=== PATIENT | male | born 1985 | race Caucasian/White ===

== ENCOUNTER 2025-05-23 04:23 | Emergency (ER) | payer SELFPAY ==
[2025-05-23 04:28] VITALS: BP 127/80
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
== END 2025-05-23 05:15 | disposition left against medical advice (07) ==
LOC: EMR 04:23
PROVIDERS: EMERGENCY PHYSICIAN Student in an Organized Health Care Education/Training Program
DX: R45.1 Restlessness and agitation (principal); F41.9 Anxiety disorder, unspecified; V49.9XXA Car occupant (driver) (passenger) injured in unspecified traffic accident, initial encounter; Y92.410 Unspecified street and highway as the place of occurrence of the external cause; Z53.29 Procedure and treatment not carried out because of patient's decision for other reasons
CPT/HCPCS: 99281

== ENCOUNTER 2025-05-23 12:11 | Emergency (ER) | payer SELFPAY ==
[2025-05-23 12:17] VITALS: BP 114/73
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
--- NOTE | 2025-05-23 18:16 | EDRN ---
pt now awake & alert, ambulating w/ a steady gait. pt talked w/ significant other Say who he states will not come to pick him up. pt wanted to leave the emergency department but did not know where he was going to go when he left. Angie, pharmacist in charge owner &
Dr Alas aware of situation. Angie contacted case management to try to arrange a safe dispo plan for the patient as patient needs to get back up to [place] by tmrw to make his methadone clinic appt
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
--- NOTE | 2025-05-23 18:23 | CM ---
I met with pt to help with transportation assistance. Pt states he currently lives in [place] ([address] [place], [place]) but does not think he can go back there, [place] address in [facility] is his brother in [place]. Pt states he needs to
get to [facility] to get his Methadone tomorrow morning but can get an emergency dose in [place]. He does not want to stay in [facility]. He is calling his sister and brother to see if he can arrange for someone to pick him up. His nurse
and Angie, charge nurse updated.
== END 2025-05-23 18:53 | disposition home or self-care (01) ==
LOC: EMR 12:11
PROVIDERS: EMERGENCY PHYSICIAN Emergency Medicine
DX: F11.20 Opioid dependence, uncomplicated (principal); F13.20 Sedative, hypnotic or anxiolytic dependence, uncomplicated; R40.0 Somnolence; R12 Heartburn; F17.200 Nicotine dependence, unspecified, uncomplicated; Z91.148 Patient's other noncompliance with medication regimen for other reason; Z59.82 Transportation insecurity
CPT/HCPCS: 99284; 70450